=== PATIENT | male | born 1950 | race Caucasian/White ===

== ENCOUNTER 2019-09-15 08:13 | Outpatient (RCR) | payer MEDICARE, MEDICAID, SELFPAY | END 2019-09-15 23:59 | disposition home or self-care (01) | LOC: WOUND 08:13 | PROVIDERS: Family Provider Family Medicine; PCP Family Medicine; Visit Provider Surgery | DX: I96 Gangrene, not elsewhere classified (principal); L97.822 Non-pressure chronic ulcer of other part of left lower leg with fat layer exposed | CPT/HCPCS: 11042; 99203; G0463 ==

== ENCOUNTER 2019-09-20 09:46 | Outpatient (RCR) | payer MEDICARE, SELFPAY ==
--- NOTE | 2019-09-20 09:56 | XRR_ITS ---
PROCEDURE INFORMATION: Exam: XR Left Tibia and Fibula Exam date and time: 09/20/2019 10:16 AM Age: 69 years old Clinical indication: Pain; Ankle; Left; Additional info: Pain/redness/non healing ulcer at lt ankle laterally TECHNIQUE: Imaging protocol: XR Left tibia and fibula. Views: 2 views. COMPARISON: No relevant prior studies available. FINDINGS: Bones/joints: Osseous structures normal. No erosive changes. No periosteal response. No fracture. No soft tissue calcifications. Osseous structures about the knee normal. No joint effusion. Soft tissues unremarkable. Medial and lateral malleoli normal. ankle mortise is symmetrical. Hindfoot foot unremarkable. Tibiotalar joint and the subtalar joint normal. Soft tissues: See Bones/joints Finding. XR/XR tibia fibula LT 2V [id number] IMPRESSION: Normal leg.
--- NOTE | 2019-09-20 09:56 | XRR_ITS ---
PROCEDURE INFORMATION: Exam: XR Left Ankle Exam date and time: 09/20/2019 10:16 AM Age: 69 years old Clinical indication: Pain; Ankle; Left; Additional info: Pain/redness/non healing ulcer, lt ankle lateral TECHNIQUE: Imaging protocol: XR Left ankle. Views: 1 or 2 views. COMPARISON: No relevant prior studies available. FINDINGS: Bones/joints: Medial and lateral malleoli are normal. Ankle mortise is symmetrical. No fracture. Hind foot is unremarkable. Tibiotalar joint and the subtalar joint appears normal. Soft tissues: Normal. XR/XR ankle LT 2V [id number] IMPRESSION: Normal ankle.
--- NOTE | 2019-09-20 09:56 | USCV_ITS ---
Vamshi Nichols Age: 69 Gender: M : 1950 Exam Date: 09/20/2019 10:19 Ordering Phys: Reji Peng MD Technologist: All Ceja Exam Location: [facility] – [place] Indication: HISTORY: Patient has ulcers. PROCEDURES: Bilateral duplex Venous Insufficiency study of the Deep and Superficial systems was carried out according to normal protocol with the patient in supine positon for deep system and dependent position for the superficial system. FINDINGS: There is no evidence of bilateral deep vein thrombosis. No evidence of superficial thrombosis in the bilateral saphenous system. No evidence of reflux was noted in the bilateral deep venous system. No venous reflux noted in the bilateral small saphenous vein. Venous reflux is demonstrated in the RIGHT greater saphenous vein with a spectral Doppler display of greater than 500 milliseconds at the DISTAL AND BELOW KNEE LEVELS. No venous reflux noted in the LEFT greater saphenous vein. CONCLUSIONS No evidence of DVT in the above-mentioned identifiable veins. Significant venous reflux of greater than 500 ms were noted at the distal and below-knee greater saphenous vein segments on the right side. No significant venous reflux on the left side Venous dimensions, depth from the surface and reflux times as mentioned above Dr Barbi Bueno MD [facility] (Electronically Signed) Final Date: 20 September 2019 15:25 S
== END 2019-10-14 23:59 | disposition home or self-care (01) ==
LOC: RAD 09:46
PROVIDERS: Family Provider Family Medicine; PCP Family Medicine; Visit Provider Surgery
DX: M25.572 Pain in left ankle and joints of left foot (principal); M79.605 Pain in left leg; L97.929 Non-pressure chronic ulcer of unspecified part of left lower leg with unspecified severity
CPT/HCPCS: 73590; 73600; 93970

== ENCOUNTER → 2019-10-10 10:41 | Outpatient (BNVA) | payer MEDICARE, SELFPAY | PROVIDERS: Family Provider Family Medicine; PCP Family Medicine; Visit Provider Nurse Practitioner | DX: M54.9 Dorsalgia, unspecified (principal); M54.2 Cervicalgia; F17.210 Nicotine dependence, cigarettes, uncomplicated; Z98.890 Other specified postprocedural states; Z79.891 Long term (current) use of opiate analgesic | CPT/HCPCS: 11043; 99214 ==

== ENCOUNTER 2019-10-13 08:33 | Outpatient (RCR) | payer MEDICARE, MEDICAID, SELFPAY | END 2019-10-14 23:59 | disposition home or self-care (01) | LOC: WOUND 08:33 | PROVIDERS: Family Provider Family Medicine; PCP Family Medicine; Visit Provider Surgery | DX: I96 Gangrene, not elsewhere classified (principal); L97.822 Non-pressure chronic ulcer of other part of left lower leg with fat layer exposed | CPT/HCPCS: 11042; 11043; 87070; 87077; 87176; 87186; 87205 ==

== ENCOUNTER 2019-10-16 12:02 | Day surgery (SDC) | payer MEDICARE, SELFPAY ==
[2019-10-13 16:47] VITALS: BMI 24.2
[2019-10-16] VITALS (7 sets, daily range): BP systolic 105–178; BP diastolic 60–99; PULSE 67–81; RESP 12–18; TEMP 36.3–36.4; O2SAT 92–98
--- NOTE | 2019-10-16 12:37 | W.PM.OPSUD ---
Surgery/Procedure H&P Update DATE OF PROCEDURE: October 16, 2019 DATE H&P PERFORMED: 10/13/19 H&P UPDATE INFORMATION: I have reviewed H&P completed within last 30 days, I have examined patient prior to procedure and No changes to prior documentation PREOP DIAGNOSIS: Left lower extremity ulcers PRIMARY INDICATION FOR PROCEDURE: The same PLANNED PROCEDURE: Operation Date: 10/16/19 14:25 Proposed Procedures p Debridement Left lower extrimity wounds(Left) - Reji Peng MD
[2019-10-16] MEDS: sodium chloride 0.9% 1,000 ML 30 ML IV (12:52)
--- NOTE | 2019-10-16 12:56 | ANES.PREANE2 ---
Pre-Anesthetic Assessment Pre-Anesthetic Assessment: Height/Weight: Height 1.91 m Weight 87.997 kg Temp Pulse Resp BP Pulse Ox 97.5 F L 67 18 178/99 98 10/16/19 12:29 10/16/19 12:29 10/16/19 12:29 10/16/19 12:29 10/16/19 12:29 Preop Diagnosis: Left lower extremity ulcers Proposed Procedure: Operation Date: 10/16/19 14:25 Proposed Procedures p Debridement Left lower extrimity wounds(Left) - Reji Peng MD Familial anesthetic complications: None Was Beta Nichole taken within 24 hours: Yes Last intake: Intake Last Liquid Date 10/16/19 Last Liquid Time 09:00 Last Solid Date 10/15/19 Last Solid Time 22:00 Social: Social History: No alcohol and No tobacco Exam: Pre-Anes Outpt Exam: alert, oriented x 3, clear to auscultation bilaterally and regular rate & rhythm Airway: Cervical ROM: WNL MP: 3 Additional comments: edentulous Pulmonary: Pulmonary: None reported Comments: ? beginning stages of copd - quit smoking a few years ago CV/HEM: CV/HEM: HTN Comments: aortic stenosis : : None reported Hepatic: Hepatic: None reported GI: GI: None reported Metabolic: Metabolic: None reported Musc/skel: Musc/skel: Lower Back Pain (SCS) and None reported Neuropsych: Neuropsych: TIA (1999) Anesthetic Plan: ASA status: 3 Anesthesia: General Risk of > 500 ml blood loss (7ml/kg in children): No Meds/Allergies Current Medications: Current Medications Generic Name Dose Route Start Last Admin Trade Name Freq PRN Reason Stop Dose Admin Sodium Chloride 1,000 mls @ 30 ml s/hr 10/16/19 12:30 10/16/19 12:52 Sodium Chloride 0.9% IV 10/17/19 12:29 30 mls/hr .Q24H OUMOU Administration PFSH Anesthesia PFSH: Medical History Encounter for long-term opiate analgesic use History of back injury 04/07/2017 Dr. Lars Stephens Spinal Cord Stimulator Eunice Peña 10/07/17 ? Thoracic laminotomy with placement of intraspinal, epidural paddle electrode arrays and placement of subcutaneous programmable pulse generator Hx of fracture of ankle right ankle 1977 Opioid contract exists Smoker Surgical History (Updated 10/10/19 @ 11:28 by ELEANOR Jameson) Hx of inguinal hernia repair 1993 Social History Smoking and tobacco status: current every day smoker cigarettes [ Other cigarette details: 2 cig day ] Alcohol intake: current Alcohol intake frequency: holidays/special occasions only Data Anesthesia Cardiac Studies: No Data to Display
[2019-10-16] MEDS: lidocaine 2% INJ 20 mL INJECTION (14:40)
[2019-10-16] MEDS: neomycin-poly-bacitracin oint 28 gm 1 APPLIC TOPICAL (14:47)
--- NOTE | 2019-10-16 14:51 | PM.OP ---
Operative Report Date of procedure: October 16, 2019 Pre-op Diagnosis: Left lower extremity ulcers Post-op diagnosis: same Procedure Done: Debridement of left lower extremity ulcers all the way to the fascial layer Specimens removed/disposition: Biopsies obtained in the form of punch biopsies 4 mm in diameter x2 sent for permanent Surgeon: Reji Peng Evp Chief Exploration Officer: ict help desk technician Yaneth Circulating nurse Lani Anesthesia: General (LMA SYRUP MIXER ASSISTANT Soni) Estimated blood loss (mL): 5 Complications: No immediate complication Condition: stable Disposition: same day Brief History: This is a pleasant 69 years old gentleman with history of trauma to the left lower extremity unclear if it was a spider bite, has been there for few months, patient was referred to my wound care surgery practice for further evaluation, x-ray was obtained that showed normal findings and left lower extremity venous duplex showed no DVT or reflux. Patient was started on local Santyl application yet the ulcers were not improving much.I elected to offer the patient surgical debridement in the OR and obtaining a biopsy for permanent pathology. Patient agreed to proceed and an informed consent per chart Procedure: After identifying the patient holding area, the left lower extremity was marked before the procedure by myself, patient was then taken to the operative suite, was placed in supine position, IV antibiotics were given per protocol,IV propofol was infused by the anesthesia provider followed by LMA placement ,prep and drape of the wound region of the left lower extremity circumferentially was done under the usual sterile technique. Time-out was done verifying the patient's name/date of /planned procedure and destination after the procedure, all were in agreement. Started by excising the unhealthy necrotic indurated tissues of the wound. Incision was created at the skin level and went all the way down to the subcutaneous tissues and fascial layer, Tissues excised including unhealthy tissues that showed fibrotic and indurated , also punch biopsies were obtained at the junction between the anterior and posterior ulcers for permanent pathology. Curettage of the floor of the ulcers was done Wound measurement ; Pre Debridement measurements; anterior ulcer 12 x 9 mm x 2 mm posterior ulcer 4 x 4 x 1 mm Post-debridement measurement; of anterior ulcer 12 x 9 x 3 mm posterior ulcer the same Sharp debridement all the way to the healthier subcutaneous level/fascial layer Irrigation of the wound was done with warm saline, followed by appropriate hemostasis, 3-0 Vicryl [id number]-jg-vgzle was used at the site of the punch biopsy, followed by triple antibiotic ointment placement followed by 2 x 2 then ABDs, Kerlix and Venancio wraps Patient tolerated the procedure well, count of instruments, needles and sponges were completed at the end of the procedure.Patient was then taken to the recovery area in stable condition. I was present for the whole entire procedure
--- NOTE | 2019-10-16 15:06 | SUR.PHASEI ---
1450- ORAL AIRWAY OUT. SAT 95% WITH ROOM AIR
== END 2019-10-16 15:55 | disposition home or self-care (01) ==
PROVIDERS: Family Provider Family Medicine; PCP Family Medicine; Visit Provider Surgery
PROC: (CPT 11043; principal; 2019-10-16 13:25)
DX: L97.822 Non-pressure chronic ulcer of other part of left lower leg with fat layer exposed (principal); I10 Essential (primary) hypertension; Z86.73 Personal history of transient ischemic attack (TIA), and cerebral infarction without residual deficits; F17.210 Nicotine dependence, cigarettes, uncomplicated; J44.9 Chronic obstructive pulmonary disease, unspecified; G47.30 Sleep apnea, unspecified
CPT/HCPCS: 11043; 12345; 88307; 96365; J0690; J1100; J2001; J2405; J2704; J3010; J7030

== ENCOUNTER 2019-11-06 15:13 | Outpatient (RCR) | payer MEDICARE, SELFPAY | END 2019-11-14 23:59 | disposition home or self-care (01) | LOC: RAD 15:13 | PROVIDERS: Family Provider Family Medicine; Visit Provider Nurse Practitioner Family | DX: L97.822 Non-pressure chronic ulcer of other part of left lower leg with fat layer exposed (principal); F17.210 Nicotine dependence, cigarettes, uncomplicated | CPT/HCPCS: 11042; 29581 ==

== ENCOUNTER 2019-11-13 15:01 | Outpatient (RCR) | payer MEDICARE, SELFPAY | END 2019-11-14 23:59 | disposition home or self-care (01) | LOC: WOUND 15:01 | PROVIDERS: Family Provider Family Medicine; PCP Family Medicine; Visit Provider Nurse Practitioner Family | DX: L97.822 Non-pressure chronic ulcer of other part of left lower leg with fat layer exposed (principal) | CPT/HCPCS: 11043; 29581 ==

== ENCOUNTER 2019-12-08 13:19 | Outpatient (RCR) | payer MEDICARE, SELFPAY | END 2019-12-14 23:59 | disposition home or self-care (01) | LOC: WOUND 13:19 | PROVIDERS: Family Provider Family Medicine; PCP Family Medicine; Visit Provider Surgery | DX: I96 Gangrene, not elsewhere classified (principal); L97.822 Non-pressure chronic ulcer of other part of left lower leg with fat layer exposed | CPT/HCPCS: 11042; 11043; 29581; 99212 ==

== ENCOUNTER 2019-12-15 13:30 | Outpatient (CLI) | payer MEDICARE, SELFPAY | END 2019-12-15 13:31 | disposition home or self-care (01) | LOC: WOUND 12-18 13:34 | PROVIDERS: Family Provider Family Medicine; PCP Family Medicine; Visit Provider Surgery | DX: I96 Gangrene, not elsewhere classified (principal); L97.822 Non-pressure chronic ulcer of other part of left lower leg with fat layer exposed | CPT/HCPCS: 11043 ==

== ENCOUNTER 2019-12-19 14:54 | Outpatient (CLI) | payer MEDICARE, MEDICAID, SELFPAY ==
--- NOTE | 2019-12-19 15:06 | USCV_ITS ---
Vamshi Nichols Age: 69 Gender: M : 1950 Exam Date: 12/19/2019 15:18 Ordering Phys: Reji Peng MD Technologist: Barbra Velásquez Exam Location: [facility] [place] Indication: HISTORY: Lower extremity swelling. PROCEDURES: Venous duplex imaging was performed in only the left lower extremity. The following venous structures were evaluated: common femoral vein, profunda vein, proximal portion of the greater saphenous vein, superficial femoral vein, and the popliteal vein. In addition, the posterior tibial and peroneal trunk were evaluated. Serial compression, augmentation maneuvers, and spectral Doppler flow evaluation were performed. FINDINGS: There is no evidence of LEFT deep vein thrombosis. No evidence of superficial thrombosis in the LEFT saphenous system. Reflux is demonstrated in the deep venous system at the level of the LEFT POPLITEAL. There was no venous reflux noted in the LEFT SFJ. No venous reflux noted in the LEFT greater saphenous vein. No venous reflux noted in the LEFT small saphenous vein. CONCLUSIONS No evidence of DVT in the above-mentioned identifiable veins. Significant venous reflux of greater than 1000 ms was noted in the left popliteal vein. No significant venous reflux were noted in any of the superficial veins on the left side The venous dimensions, depth from the surface and the reflux time are as mentioned above Compared to the study from 09/20/2019, there may not be a significant change(the deep venous reflux on the left side was not mentioned in the previous report) Dr Barbi Bueno MD [facility] (Electronically Signed) Final Date: 19 Dec 2019 16:48 S
== END 2019-12-19 14:55 | disposition home or self-care (01) ==
LOC: RAD 14:59
PROVIDERS: Family Provider Family Medicine; PCP Family Medicine; Visit Provider Surgery
DX: M79.605 Pain in left leg (principal); L97.929 Non-pressure chronic ulcer of unspecified part of left lower leg with unspecified severity; M79.89 Other specified soft tissue disorders
CPT/HCPCS: 93971

== ENCOUNTER 2019-12-19 15:39 | Outpatient (CLI) | payer MEDICARE, MEDICAID, SELFPAY | END 2019-12-19 15:40 | disposition home or self-care (01) | LOC: WOUND 15:43 | PROVIDERS: Family Provider Family Medicine; PCP Family Medicine; Visit Provider Thoracic Surgery (Cardiothoracic Vascular Surgery) | DX: Z51.89 Encounter for other specified aftercare (principal) | CPT/HCPCS: 29581 ==

== ENCOUNTER 2019-12-22 14:01 | Outpatient (CLI) | payer MEDICARE, MEDICAID, SELFPAY | END 2019-12-22 14:02 | disposition home or self-care (01) | LOC: WOUND 14:02 | PROVIDERS: Family Provider Family Medicine; PCP Family Medicine; Visit Provider Surgery | DX: I96 Gangrene, not elsewhere classified (principal); L97.822 Non-pressure chronic ulcer of other part of left lower leg with fat layer exposed | CPT/HCPCS: 11042 ==

== ENCOUNTER 2019-12-29 14:21 | Outpatient (CLI) | payer MEDICARE, MEDICAID, SELFPAY | END 2019-12-29 14:22 | disposition home or self-care (01) | LOC: WOUND 14:23 | PROVIDERS: Family Provider Family Medicine; PCP Family Medicine; Visit Provider Surgery | DX: I87.2 Venous insufficiency (chronic) (peripheral) (principal); L97.822 Non-pressure chronic ulcer of other part of left lower leg with fat layer exposed | CPT/HCPCS: 11042 ==

== ENCOUNTER 2020-01-05 13:11 | Outpatient (CLI) | payer MEDICARE, MEDICAID, SELFPAY | END 2020-01-05 13:12 | disposition home or self-care (01) | PROVIDERS: Family Provider Family Medicine; PCP Family Medicine; Visit Provider Nurse Practitioner Family | DX: I87.2 Venous insufficiency (chronic) (peripheral) (principal); L97.822 Non-pressure chronic ulcer of other part of left lower leg with fat layer exposed | CPT/HCPCS: 11042 ==

== ENCOUNTER 2020-01-09 13:21 | Outpatient (CLI) | payer MEDICARE, MEDICAID, SELFPAY | END 2020-01-09 13:22 | disposition home or self-care (01) | LOC: WOUND 13:22 | PROVIDERS: Family Provider Family Medicine; PCP Family Medicine; Visit Provider Thoracic Surgery (Cardiothoracic Vascular Surgery) | DX: Z51.89 Encounter for other specified aftercare (principal) | CPT/HCPCS: 29581 ==

== ENCOUNTER 2020-01-12 11:04 | Outpatient (CLI) | payer MEDICARE, MEDICAID, SELFPAY | END 2020-01-12 11:05 | disposition home or self-care (01) | LOC: WOUND 11:06 | PROVIDERS: Family Provider Family Medicine; PCP Family Medicine; Visit Provider Surgery | DX: I87.2 Venous insufficiency (chronic) (peripheral) (principal); L97.822 Non-pressure chronic ulcer of other part of left lower leg with fat layer exposed | CPT/HCPCS: 97597 ==

== ENCOUNTER 2020-01-19 10:48 | Outpatient (CLI) | payer MEDICARE, MEDICAID, SELFPAY | END 2020-01-19 10:49 | disposition home or self-care (01) | PROVIDERS: Family Provider Family Medicine; PCP Family Medicine; Visit Provider Nurse Practitioner Family | DX: R60.9 Edema, unspecified (principal) | CPT/HCPCS: 29581 ==

== ENCOUNTER 2020-01-22 14:47 | Outpatient (CLI) | payer MEDICARE, MEDICAID, SELFPAY | END 2020-01-22 14:48 | disposition home or self-care (01) | LOC: WOUND 14:49 | PROVIDERS: Family Provider Family Medicine; PCP Family Medicine; Visit Provider Nurse Practitioner Family | DX: Z51.89 Encounter for other specified aftercare (principal) | CPT/HCPCS: 29581 ==

== ENCOUNTER 2020-01-26 13:29 | Outpatient (CLI) | payer MEDICARE, SELFPAY | END 2020-01-26 13:30 | disposition home or self-care (01) | LOC: WOUND 13:31 | PROVIDERS: Family Provider Family Medicine; PCP Family Medicine; Visit Provider Surgery | DX: I87.2 Venous insufficiency (chronic) (peripheral) (principal); L97.822 Non-pressure chronic ulcer of other part of left lower leg with fat layer exposed | CPT/HCPCS: 11042 ==

== ENCOUNTER 2020-02-02 13:34 | Outpatient (CLI) | payer MEDICARE, SELFPAY | END 2020-02-02 13:35 | disposition home or self-care (01) | LOC: WOUND 13:38 | PROVIDERS: Family Provider Family Medicine; PCP Family Medicine; Visit Provider Surgery | DX: I87.2 Venous insufficiency (chronic) (peripheral) (principal); L97.822 Non-pressure chronic ulcer of other part of left lower leg with fat layer exposed | CPT/HCPCS: 11042 ==

== ENCOUNTER 2020-02-09 10:39 | Outpatient (CLI) | payer MEDICARE, SELFPAY | END 2020-02-09 10:40 | disposition home or self-care (01) | LOC: WOUND 10:41 | PROVIDERS: Family Provider Family Medicine; PCP Family Medicine; Visit Provider Surgery | DX: I87.2 Venous insufficiency (chronic) (peripheral) (principal); L97.822 Non-pressure chronic ulcer of other part of left lower leg with fat layer exposed | CPT/HCPCS: A6545; G0463 ==

== ENCOUNTER → 2021-12-19 08:40 | Outpatient (BNVA) | payer MEDICARE, SELFPAY | PROVIDERS: Family Provider Family Medicine; PCP Family Medicine; Visit Provider Surgery | DX: I87.2 Venous insufficiency (chronic) (peripheral) (principal); L97.821 Non-pressure chronic ulcer of other part of left lower leg limited to breakdown of skin; I96 Gangrene, not elsewhere classified; F17.210 Nicotine dependence, cigarettes, uncomplicated; L97.922 Non-pressure chronic ulcer of unspecified part of left lower leg with fat layer exposed; M79.605 Pain in left leg | CPT/HCPCS: 11043; 73590; 99213 ==

== ENCOUNTER 2021-12-19 10:59 | Outpatient (CLI) | payer MEDICARE, SELFPAY ==
--- NOTE | 2021-12-19 11:21 | XR_ITS ---
WS: [id number] Left leg including the tibia and fibula, AP and lateral, 12/19/2021 Clinical Data: Wound Comparison: Left leg, 09/20/2019. Findings: No fractures or dislocations are seen. The tibia and fibula are intact. The soft tissues are normal. No erosion of the cortices of the tibia or fibula is seen. XR/XR tibia fibula LT 2V [id number] Impression: Negative left leg.
== END 2021-12-19 11:00 | disposition home or self-care (01) ==
LOC: RAD 11:02
PROVIDERS: Family Provider Family Medicine; PCP Family Medicine; Visit Provider Surgery
DX: L97.922 Non-pressure chronic ulcer of unspecified part of left lower leg with fat layer exposed (principal); M79.605 Pain in left leg
CPT/HCPCS: 73590

== ENCOUNTER → 2021-12-26 09:34 | Outpatient (BNVA) | payer MEDICARE, SELFPAY | PROVIDERS: Family Provider Family Medicine; PCP Family Medicine; Visit Provider Emergency Medicine | DX: I87.2 Venous insufficiency (chronic) (peripheral) (principal); L97.822 Non-pressure chronic ulcer of other part of left lower leg with fat layer exposed; I96 Gangrene, not elsewhere classified | CPT/HCPCS: 11042 ==

== ENCOUNTER → 2022-01-02 09:04 | Outpatient (BNVA) | payer MEDICARE, SELFPAY | PROVIDERS: Family Provider Family Medicine; PCP Family Medicine; Visit Provider Surgery | DX: I87.2 Venous insufficiency (chronic) (peripheral) (principal); L97.822 Non-pressure chronic ulcer of other part of left lower leg with fat layer exposed; I96 Gangrene, not elsewhere classified | CPT/HCPCS: 11042 ==

== ENCOUNTER → 2022-01-09 09:07 | Outpatient (BNVA) | payer MEDICARE, SELFPAY | PROVIDERS: Family Provider Family Medicine; PCP Family Medicine; Visit Provider Surgery | DX: I87.2 Venous insufficiency (chronic) (peripheral) (principal); L97.822 Non-pressure chronic ulcer of other part of left lower leg with fat layer exposed; I96 Gangrene, not elsewhere classified | CPT/HCPCS: 11042 ==

== ENCOUNTER 2022-01-14 15:09 | Outpatient (CLI) | payer MEDICARE, SELFPAY ==
--- NOTE | 2022-01-14 15:00 | USCV_ITS ---
Vamshi Nichols Age: 71 Gender: M : 1950 Exam Date: 01/14/2022 15:26 Ordering Phys: Reji Peng MD Technologist: BRYANT Exam Location: [facility] [place] Indication: LEFT LEG ULCER AND PAIN Risk Factors: Previous Vascular Surgery: RIGHT LEFT Waveform Velocity (cm/s) Velocity (cm/s) Waveform Iliac Prox 62.8 Triphasic Iliac Mid 56.3 Triphasic Iliac Distal 67.8 Triphasic HARNESS CUTTER 78.3 Triphasic SFA Prox 101.4 Triphasic SFA Mid 58.1 Triphasic SFA Dist 55.2 Triphasic POP 55.9 Triphasic TREATING ENGINEER HELPER 48.6 Triphasic DPA 64.4 Triphasic LAURIE 0.9 FINDINGS Resting LAURIE of 0.9 on the left side Normal arterial Doppler waveforms CONCLUSIONS No significant arterial obstruction in the left lower extremity, based on the above findings Dr Barbi Bueno MD [facility] (Electronically Signed) Final Date: 14 January 2022 19:18 S
== END 2022-01-14 15:10 | disposition home or self-care (01) ==
LOC: RAD 15:12
PROVIDERS: PCP Family Medicine; Visit Provider Surgery
DX: L97.922 Non-pressure chronic ulcer of unspecified part of left lower leg with fat layer exposed (principal); M79.605 Pain in left leg
CPT/HCPCS: 93926

== ENCOUNTER → 2022-01-16 09:18 | Outpatient (BNVA) | payer MEDICARE, SELFPAY | PROVIDERS: Family Provider Family Medicine; PCP Family Medicine; Visit Provider Surgery | DX: I87.2 Venous insufficiency (chronic) (peripheral) (principal); L97.822 Non-pressure chronic ulcer of other part of left lower leg with fat layer exposed; I96 Gangrene, not elsewhere classified | CPT/HCPCS: 11043; A6212 ==

== ENCOUNTER → 2022-01-23 09:16 | Outpatient (BNVA) | payer MEDICARE, SELFPAY | PROVIDERS: Family Provider Family Medicine; PCP Family Medicine; Visit Provider Nurse Practitioner Family | DX: I87.2 Venous insufficiency (chronic) (peripheral) (principal); L97.822 Non-pressure chronic ulcer of other part of left lower leg with fat layer exposed; I96 Gangrene, not elsewhere classified | CPT/HCPCS: 11042 ==

== ENCOUNTER → 2022-01-26 14:42 | Outpatient (BNVA) | payer MEDICARE, SELFPAY | PROVIDERS: Family Provider Family Medicine; PCP Family Medicine; Visit Provider Thoracic Surgery (Cardiothoracic Vascular Surgery) | DX: L97.822 Non-pressure chronic ulcer of other part of left lower leg with fat layer exposed (principal); I87.2 Venous insufficiency (chronic) (peripheral) | CPT/HCPCS: 29581 ==

== ENCOUNTER → 2022-01-30 09:17 | Outpatient (BNVA) | payer MEDICARE, SELFPAY | PROVIDERS: Family Provider Family Medicine; PCP Family Medicine; Visit Provider Nurse Practitioner Family | DX: I87.2 Venous insufficiency (chronic) (peripheral) (principal); L97.822 Non-pressure chronic ulcer of other part of left lower leg with fat layer exposed; I96 Gangrene, not elsewhere classified | CPT/HCPCS: 11042 ==

== ENCOUNTER → 2022-02-06 09:59 | Outpatient (BNVA) | payer MEDICARE, SELFPAY | PROVIDERS: Family Provider Family Medicine; PCP Family Medicine; Visit Provider Nurse Practitioner Family | DX: I87.2 Venous insufficiency (chronic) (peripheral) (principal); L97.822 Non-pressure chronic ulcer of other part of left lower leg with fat layer exposed; I96 Gangrene, not elsewhere classified | CPT/HCPCS: 11042; 29581 ==

== ENCOUNTER → 2022-02-13 10:15 | Outpatient (BNVA) | payer MEDICARE, SELFPAY | PROVIDERS: Family Provider Family Medicine; PCP Family Medicine; Visit Provider Surgery | DX: I87.2 Venous insufficiency (chronic) (peripheral) (principal); L97.822 Non-pressure chronic ulcer of other part of left lower leg with fat layer exposed; I96 Gangrene, not elsewhere classified | CPT/HCPCS: 11043 ==

== ENCOUNTER → 2022-02-20 10:18 | Outpatient (BNVA) | payer MEDICARE, SELFPAY | PROVIDERS: Family Provider Family Medicine; PCP Family Medicine; Visit Provider Surgery | DX: I87.2 Venous insufficiency (chronic) (peripheral) (principal); L97.822 Non-pressure chronic ulcer of other part of left lower leg with fat layer exposed; I96 Gangrene, not elsewhere classified | CPT/HCPCS: 11042 ==

== ENCOUNTER → 2022-02-27 10:47 | Outpatient (BNVA) | payer MEDICARE, SELFPAY | PROVIDERS: Family Provider Family Medicine; PCP Family Medicine; Visit Provider Surgery | DX: I87.2 Venous insufficiency (chronic) (peripheral) (principal); L97.822 Non-pressure chronic ulcer of other part of left lower leg with fat layer exposed; I96 Gangrene, not elsewhere classified | CPT/HCPCS: 11042; 15271; Q4205 ==

== ENCOUNTER → 2022-03-06 10:33 | Outpatient (BNVA) | payer MEDICARE, SELFPAY | PROVIDERS: Family Provider Family Medicine; PCP Family Medicine; Visit Provider Nurse Practitioner Family | DX: I87.2 Venous insufficiency (chronic) (peripheral) (principal); L97.822 Non-pressure chronic ulcer of other part of left lower leg with fat layer exposed; I96 Gangrene, not elsewhere classified | CPT/HCPCS: 99212; 99213; A6212 ×2 ==

== ENCOUNTER → 2022-03-13 10:44 | Outpatient (BNVA) | payer MEDICARE, SELFPAY | PROVIDERS: Family Provider Family Medicine; PCP Family Medicine; Visit Provider Nurse Practitioner Family | DX: Z09 Encounter for follow-up examination after completed treatment for conditions other than malignant neoplasm (principal) | CPT/HCPCS: 99212 ==

== ENCOUNTER → 2022-10-27 14:59 | Outpatient (BNVA) | payer MEDICARE, SELFPAY | PROVIDERS: Family Provider Family Medicine; PCP Family Medicine; Visit Provider Orthopaedic Surgery | DX: M54.9 Dorsalgia, unspecified (principal); Z96.82 Presence of neurostimulator | CPT/HCPCS: 72072; 72100; 99204 ==

== ENCOUNTER 2022-10-30 11:33 | Outpatient (CLI) | payer MEDICARE, SELFPAY | END 2022-10-30 11:34 | disposition home or self-care (01) | LOC: RT 11-03 11:35 | PROVIDERS: PCP Family Medicine; Visit Provider Orthopaedic Surgery | DX: Z13.6 Encounter for screening for cardiovascular disorders (principal) | CPT/HCPCS: 93005 ==

== ENCOUNTER 2022-11-06 05:54 | Day surgery (SDC) | payer MEDICARE, SELFPAY ==
--- NOTE | 2022-10-30 11:10 | ECG_ITS ---
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
[2022-10-30 11:29] VITALS: BMI 23.7
[2022-10-30 12:10] LABS: Anion Gap 12.6 (5-19); Blood Urea Nitrogen 15 mg/dL (8-23); Calcium 9.3 mg/dL (8.5-10.5); Carbon Dioxide 27 mmol/L (22-29); Chloride 103 mmol/L (98-107); Glucose 108 mg/dL (65-115); Osmolality Calculated 287 mOsm/kg (285-295); Potassium 4.6 mmol/L (3.5-5.1); Sodium 138 mmol/L (136-145)
--- NOTE | 2022-10-30 14:38 | P.ANESASSM_ITS ---
Pre-Anesthetic Assessment Height/Weight: Height 1.91 m Weight 86.183 kg Preop Diagnosis: Left lower extremity ulcers Operation Date: 11/06/22 08:55 Proposed Procedures p Replacement of generator: 74828,M54.9(Not Applicable) - Jesus Sheth DO Familial anesthetic complications: none Was Beta Nichole taken within 24 hours: Yes Was Clonidine taken within 24 hours: N/A Social Tobacco and No alcohol Exam alert, oriented x 3 and regular rate & rhythm Airway Submandibular: within normal limits Cervical ROM: within normal limits Mallampati: Class III Dentition: false Pulmonary Chronic Obstructive Pulmonary Disease CV/HEM Hypertension Musc/sk Lower Back Pain and Osteoarthritis/DJD Anesthetic Plan ASA status: 3 Anesthesia: General Medications/Allergies Home Medications Medication Instructions Recorded Confirmed Last Taken Type cholecalciferol (vitamin D3) 125 5,000 unit PO DAILY 10/09/19 10/30/22 10/30/22 History mcg (5,000 unit) tablet lisdexamfetamine 20 mg capsule 20 mg PO .1 day 10/09/19 10/30/22 10/30/22 History (Vclaritzae) propranolol 40 mg tablet 40 mg PO .1 BID 10/09/19 10/30/22 10/30/22 History diphenhydramine HCl 25 mg capsule 25 mg PO .1 at HS PRN Itching 10/10/19 10/30/22 10/29/22 History tramadol 50 mg tablet 50 mg PO Q8H PRN pain #120 tabs 10/10/19 10/30/22 10/30/22 Rx hydrocodone 10 mg-acetaminophen 1 tab PO QID PRN pain 30 days #120 10/18/19 10/30/22 10/30/22 Rx 325 mg tablet tabs collagenase clostridium histo. 250 1 applic topical DAILY #90 grams 12/26/21 10/30/22 10/30/22 Rx unit/gram topical ointment (Santyl) aspirin 81 mg chewable tablet 81 mg PO DAILY 10/30/22 10/30/22 10/23/22 History lisinopril 20 mg tablet 20 mg PO DAILY 10/30/22 10/30/22 10/30/22 History Allergies Allergy/AdvReac Type Severity Reaction Status Date / Time amphetamine [From Adderall] Allergy increased Verified 10/30/22 11:22 his symptoms dextroamphetamine Allergy increased Verified 10/30/22 11:22 [From Adderall] his symptoms Olkigfc-SDC-PcF Reductase Allergy bloating Verified 10/30/22 11:22 Inhibitor [Jjatktd-Fgc-Tld Reductase Inhibitor] Sulfa (Sulfonamide Allergy throat Verified 10/30/22 11:22 Antibiotics) swells topiramate [From Topamax] Allergy sensative Verified 10/30/22 11:22 to medication [facility] Anesthesia Medical History Encounter for long-term opiate analgesic use History of back injury 04/07/2017 Dr. Lars Stephens Spinal Cord Stimulator Eunice Peña 10/07/17 ? Thoracic laminotomy with placement of intraspinal, epidural paddle electrode arrays and placement of subcutaneous programmable pulse generator Hx of fracture of ankle right ankle 1977 Opioid contract exists Smoker Surgical History Hx of inguinal hernia repair 1993 Family History Sister Heart disease Father Emphysema lung Social History Smoking and tobacco status: current every day smoker cigarettes [ Other cigarette details: 2 cig day] Alcohol intake: current Alcohol intake frequency: holidays/special occasions only Data Anesthesia 10/30/22 11:45 BMP 10/30/22 11:45 Sodium 138 Potassium 4.6 Chloride 103 Carbon Dioxide 27 BUN 15 Creatinine 0.7 Glucose 108 Calcium 9.3 Cardiac Studies: No Data to Display
[2022-11-06] VITALS (8 sets, daily range): BP systolic 122–181; BP diastolic 78–97; PULSE 76–83; RESP 12–20; TEMP 36.1–36.6; O2SAT 94–99
[2022-11-06] MEDS: sodium chloride 0.9% 1,000 ML 30 ML IV (06:27)
--- NOTE | 2022-11-06 06:29 | W.PM.OPSUD ---
Surgery/Procedure H&P Update DATE OF PROCEDURE: November 06, 2022 DATE H&P PERFORMED: 10/27/22 H&P UPDATE INFORMATION: I have reviewed H&P completed within last 30 days, I have examined patient prior to procedure and No changes to prior documentation PREOP DIAGNOSIS: Failed spinal cord stimulator, chronic pain syndrome PLANNED PROCEDURE: Operation Date: 11/06/22 07:00 Proposed Procedures p Replacement of generator: 79522,M54.9(Not Applicable) - Jesus Sheth DO
[2022-11-06] MEDS: ceFAZolin 2,000 MG in sodium chloride 0.9% (plus) 50 ML 100 MG IV (07:01)
[2022-11-06] MEDS: lidocaine-epi 1% 20 mL INJ INJECTION (07:28)
--- NOTE | 2022-11-06 08:01 | PM.OP ---
Operative Report Date of procedure: November 06, 2022 Pre-op diagnosis: Preop Diagnosis Failed spinal cord stimulator, chronic pain syndrome Post-op diagnosis: same Procedure done: 1. neurostimulator battery exchange Surgeon: Jesus Sheth Epic Prelude Analyst: Kojo Marroquin Estimated blood loss (mL): 5 Procedure: 1. neurostimulator battery exchange Patient brought the op suite after undergoing anesthesia patient was placed in the prone position. All areas impingement well-padded patient's prepped draped also fashion. Skin is made over the battery on the right flank. Battery was removed wires were removed and replaced into the new battery wires were found to be functioning battery was reinserted back into the pouch after being irrigated and then the wound was closed in a layered fashion with 2-0 Vicryl and Monocryl suture. Steri-Strips were applied sterile dressings applied patient was transferred to the PACU in stable condition.
[2022-11-06] MEDS: HYDROcodone-acetaminophen 5-325 mg Tablet 2 TAB PO (08:38)
--- NOTE | 2022-11-06 12:42 | ANE.PACU2 ---
Inpatient post-anesthesia follow up: Airway intact: Yes Vital signs: Temperature 97.2 F Pulse Rate 78 Respiratory Rate 18 Blood Pressure 122/84 Pulse Oximetry 97 Oxygen Delivery Me thod Room Air Oxygen Flow Rate Fraction of Inspir ed Oxygen Hydration adequate: Yes Nausea and vomiting: No Pain level: 1 Mental status: Baseline
== END 2022-11-06 08:42 | disposition home or self-care (01) ==
PROVIDERS: Anesthesiology; PCP Family Medicine; Visit Provider Orthopaedic Surgery
PROC: (CPT 63685; principal; 2022-11-06 07:00)
DX: Z45.42 Encounter for adjustment and management of neurostimulator (principal); G89.4 Chronic pain syndrome; J44.9 Chronic obstructive pulmonary disease, unspecified; I10 Essential (primary) hypertension; Z79.82 Long term (current) use of aspirin; F17.210 Nicotine dependence, cigarettes, uncomplicated
CPT/HCPCS: 63685; 36415; 80048; C1820; J0330; J0690; J1100; J2405; J2704; J3010; J3490; J7030

== ENCOUNTER → 2022-11-19 08:40 | Outpatient (BNVA) | payer MEDICARE, SELFPAY | PROVIDERS: PCP Family Medicine; Visit Provider Physician Assistant | DX: Z98.890 Other specified postprocedural states (principal) | CPT/HCPCS: 99024 ==